=== PATIENT | male | born 1965 | race Caucasian/White ===

== ENCOUNTER → 2021-04-26 | Outpatient (CLI) | payer OTHER ==
[~2021-04-26] MED LIST: ATORVASTATIN CA40 MG PO; ISOSORBIDE MONO30 MG PO; LEVAQUIN500 MG PO; LOPRESSOR 25 MG25 MG PO; NORCO 5-325 TA1 EACH PO; NORVASC 5 MG TAB5 MG PO; PLAVIX 75 MG TA75 MG PO; VASOTEC 5 MG TAB5 MG PO
[2021-04-26 15:42] LABS: BUN/CREATININE RATIO 9 (0-10)
== END ==
LOC: LAB 13:03
DX: I50.9 Heart failure, unspecified (principal)
CPT/HCPCS: 36415; 80048; 83735